=== PATIENT | female | born 1950 | race Caucasian/White ===

== ENCOUNTER 2024-01-30 11:12 | Emergency (ER) | payer OTHER, SELFPAY ==
[2024-01-30 11:19] VITALS: PULSE 70; O2SAT 95
[2024-01-30 11:20] VITALS: BP 118/60; PULSE 74; RESP 17; TEMP 36.6; O2SAT 99; BMI 21.1
--- NOTE | 2024-01-30 11:26 | DI.RAD.S_ITS ---
PROCEDURE: XR HIP W PEL IF DONE LT 2V INDICATIONS: fall 5 days ago. increasing pain in the groin down left leg TECHNIQUE: AP pelvis with lateral view(s) of the left hip(s). COMPARISON: None. FINDINGS: Bones: No fractures or dislocations. Pelvic ring appears intact. No suspicious bony lesions. Soft tissues: The visualized bowel gas pattern is normal. No suspicious soft tissue calcifications. IMPRESSION: No acute bony abnormality. Dictated by: Fariba Gonsalves MD, PhD on 01/30/2024 at 12:29 Approved by: Fariba Gonsalves MD, PhD on 01/30/2024 at 12:29
[2024-01-30 11:30] VITALS: BP 116/62; PULSE 72; O2SAT 99
--- NOTE | 2024-01-30 11:57 | ED_ITS ---
HPI - Extremity Injury (Lower) General Chief Complaint: Extremity Injury, Lower Stated Complaint: Fall 4 days ago,left hip pain Time Seen by Provider: 01/30/24 11:17 Source: patient Mode of arrival: EMS History of Present Illness HPI Narrative: 73-year-old female presents for evaluation of left hip pain. She states that [place] was on [place] when she slipped and fell, landing on her left hip. She shook the injury off, but over the last 4 days has had persistent pain that does not seem to be getting better. Taking Tylenol for it without significant relief. Still able to ambulate. States that she was concerned that she may have cracked a bone and is presenting for x-rays. Related Data Home Medications Medication Instructions Recorded Confirmed No Known Home Medications 01/30/24 01/30/24 Allergies Allergy/AdvReac Type Severity Reaction Status Date / Time No Known Drug Allergies Allergy Verified 01/30/24 11:23 Patient History Social History Smoking Status: Never smoker Smoking Status: Never smoker alcohol intake frequency: 3 or more drinks per day Substance Use Type: does not use Exam Initial Vital Signs Initial Vital Signs: Vital Signs Pulse Rate 70 01/30/24 11:19 Pulse Oximetry 95 01/30/24 11:19 Const: Awake, alert, no acute distress, nontoxic appearing MSK: Atraumatic, no deformity, full range of motion, generalized tenderness over left hip joint Skin: Warm, Dry, intact, no rashes Neuro: AO x3, CN II-XII grossly intact, moves all extremities Course Orders Ordered: Discontinued Medications Hydrocodone Bitart/Acetaminophen (Hydrocodone/Acet 5/325 Tablet) 1 tab PO NOW ONE Stop: 01/30/24 11:58 Last Admin: 01/30/24 12:04 Dose: 1 tab Documented By: LASHAE Vital Signs Vital signs: Vital Signs - 8 hr 01/30/24 11:19 01/30/24 11:20 01/30/24 11:30 Temperature 98 F Pulse Rate 70 74 72 Respiratory Rate 17 Blood Pressure 118/60 Pulse Oximetry 95 99 99 Oxygen Delivery Method Room Air 01/30/24 11:30 01/30/24 12:00 01/30/24 12:00 Temperature Pulse Rate 71 Respiratory Rate Blood Pressure 116/62 110/64 Pulse Oximetry 99 Oxygen Delivery Method 01/30/24 12:30 01/30/24 12:30 Temperature Pulse Rate 70 Respiratory Rate Blood Pressure 106/62 Pulse Oximetry 99 Oxygen Delivery Method Room Air MDM - Extremity Injury (Lower) Imaging Data Extremity x-ray #1: Radiologist's Impression: PROCEDURE: XR HIP W PEL IF DONE LT 2V INDICATIONS: fall 5 days ago. increasing pain in the groin down left leg TECHNIQUE: AP pelvis with lateral view(s) of the left hip(s). COMPARISON: None. FINDINGS: Bones: No fractures or dislocations. Pelvic ring appears intact. No suspicious bony lesions. Soft tissues: The visualized bowel gas pattern is normal. No suspicious soft tissue calcifications. IMPRESSION: No acute bony abnormality. Dictated by: Fariba Gonsalves MD, PhD on 01/30/2024 at 12:29 Approved by: Fariba Gonsalves MD, PhD on 01/30/2024 at 12:29 [facility] Narrative Medical decision making narrative: Four days of hip pain after a fall. Still ambulatory. No shortening or abnormal rotation on exam. X-ray imaging negative for acute findings. Patient informed of x-ray results. Offered short course of pain medications, however patient declined, stating that she would be fine continuing with Tylenol and ice packs at home. Discharge Plan Departure Patient Disposition: Home Clinical Impression: Contusion of hip Instructions: DI for Hip Pain Activity Restrictions/Additional Instructions: Your x-rays today did not show any obvious fractures or breaks. At home take 1000 mg of Tylenol and 400 mg of ibuprofen every 6 hours as needed for pain. Take no more than 4000 mg of Tylenol daily. Gentle activity should help with your soreness. Prescriptions: No Action No Known Home Medications Referrals: Doctor Lala MD [Primary Care Provider] - Stand Alone Forms: Patient Portal/API
[2024-01-30 12:00] VITALS: BP 110/64; PULSE 71; O2SAT 99
[2024-01-30] MEDS: HYDROCODONE/ACET 5/325 TABLET 1 TAB PO (12:04)
[2024-01-30 12:30] VITALS: BP 106/62; PULSE 70; O2SAT 99
== END 2024-01-30 12:41 | disposition home or self-care (01) ==
PROVIDERS: Emergency Provider Emergency Medicine
DX: S70.02XA Contusion of left hip, initial encounter (principal); W01.0XXA Fall on same level from slipping, tripping and stumbling without subsequent striking against object, initial encounter
CPT/HCPCS: 73502; 99283